=== PATIENT | female | born 1975 | race Caucasian/White ===

== ENCOUNTER 2016-06-19 15:35 | Inpatient (IN) | payer OTHER ==
[~2016-06-19] VITALS: Ht 160 cm; Wt 69.2 kg
[2016-06-19] MEDS ORDERED: MAGNESIUM HYDROXIDE SUSPENSION 30 ML UDCUP PO PRN (16:45)
[2016-06-19] MEDS: TraMADol HCL 50 MG TABLET PO PRN (17:06)
[2016-06-19 17:08] VITALS: BP 120/89
[2016-06-19] MEDS ORDERED: ALBUTEROL SULFATE HFA 90 MCG/PUFF 8 GM INHALER IH PRN (17:30)
[2016-06-19] MEDS: METHOCARBAMOL 500 MG TABLET PO PRN ×2 (18:22→23:58)
[2016-06-19 18:32] LABS: GLUCOSE,POINT OF CARE 102 MG/DL (70-110)
[2016-06-19] MEDS: SENNA 187 MG TABLET PO SCH (20:23)
[2016-06-19] MEDS: DEXAMETHASONE 2 MG TABLET PO SCH (20:23)
[2016-06-19] MEDS: IBUPROFEN 800 MG TABLET PO SCH (20:23)
[2016-06-19] MEDS: DOCUSATE SODIUM 100 MG CAPSULE PO SCH (20:23)
[2016-06-19 21:21] LABS: APPEARANCE,URINE CLOUDY (CLEAR); GLUCOSE, URINE (UA) NEGATIVE (NEGATIVE); KETONES,URINE NEGATIVE (NEGATIVE); LEUKOCYTE ESTERASE ,URINE MODERATE (NEGATIVE); OCCULT BLOOD,URINE NEGATIVE (NEGATIVE); PROTEIN,URINE NEGATIVE (NEGATIVE)
[2016-06-19 21:22] LABS: ADD UA MICROSCOPIC YES
[2016-06-19 21:37] LABS: RBC,URINE 0-2 /HPF (0-2); SQUAMOUS EPITHELIAL CELL,UR Few /LPF (None Seen); TRANSITIONAL EPI CELLS,URINE Few /LPF (None Seen)
[2016-06-19 23:58] VITALS: BP 122/79
[2016-06-20] MEDS: TraMADol HCL 50 MG TABLET PO PRN ×3 (00:38→22:13)
[2016-06-20] MEDS: ACETAMINOPHEN 325 MG TABLET PO PRN ×4 (06:19→19:05)
[2016-06-20 07:12] LABS: BASOPHILS % (AUTO) 0.3 % (0.0-2.0); EOSINOPHILS % (AUTO) 0.7 % (1.0-6.0); HEMATOCRIT 34.6 % (36-46); HEMOGLOBIN 11.2 g/dL (12.0-16.0); LYMPHOCYTES # (AUTO) 3.1 K/uL (1.0-4.8); LYMPHOCYTES % (AUTO) 20.6 % (22.0-44.0); MEAN CORPUSCULAR HEMOGLOBIN 27.5 pg (26.0-34.0); MEAN CORPUSCULAR HGB CONC 32.4 G/dL (31.0-37.0); MEAN CORPUSCULAR VOLUME 85 fL (80-100); MONOCYTES # (AUTO) 0.9 K/uL (0.1-1.0); MONOCYTES % (AUTO) 5.8 % (2.0-9.0); NEUTROPHILS % (AUTO) 72.6 % (40.0-70.0); PLATELET COUNT (AUTO) 358 K/uL (150-450); RED BLOOD CELL COUNT(AUTO) 4.06 MIL/uL (4.00-5.20); RED CELL DISTRIBUTION WIDTH 15.4 % (11.5-14.5); WHITE BLOOD COUNT (AUTO) 15.1 K/uL (4.5-11.0)
[2016-06-20 07:18] VITALS: BP 129/73
[2016-06-20 07:42] LABS: ALANINE AMINOTRANSFERASE 26 U/L (12-78); ANION GAP 9 mmol/L (8-16); ASPARTATE AMINOTRANSFERASE 15 U/L (15-37); BILIRUBIN,TOTAL 0.2 mg/dL (0.1-1.0); CALCIUM, TOTAL 8.5 mg/dL (8.8-10.5); CARBON DIOXIDE 29 mmol/L (22-29); CHLORIDE 103 mmol/L (98-107); CREATININE 0.68 mg/dL (0.60-1.30); GLOMERULAR FILTR. RATE CALC > 60 mL/min (>60); POTASSIUM 4.2 mmol/L (3.5-5.1); SODIUM SERUM 141 mmol/L (136-145); UREA NITROGEN, BLOOD 16 mg/dL (7-18)
[2016-06-20] MEDS: POLYETHYLENE GLYCOL 3350 17 GM PACKET PO SCH (08:06)
[2016-06-20] MEDS: DOCUSATE SODIUM 100 MG CAPSULE PO SCH ×2 (08:07→20:53)
[2016-06-20] MEDS: IBUPROFEN 800 MG TABLET PO SCH ×3 (08:07→20:54)
[2016-06-20] MEDS: DEXAMETHASONE 2 MG TABLET PO SCH ×2 (08:07→20:52)
[2016-06-20 15:10] VITALS: BP 120/76
[2016-06-20] MEDS: SENNA 187 MG TABLET PO SCH (20:52)
[2016-06-20 23:10] VITALS: BP 125/81
[2016-06-21 07:30] VITALS: BP 132/84
[2016-06-21] MEDS: DOCUSATE SODIUM 100 MG CAPSULE PO SCH ×2 (08:13→20:53)
[2016-06-21] MEDS: IBUPROFEN 800 MG TABLET PO SCH ×3 (08:13→20:53)
[2016-06-21] MEDS: DEXAMETHASONE 1 MG TABLET PO SCH ×2 (08:13→20:54)
[2016-06-21] MEDS: TraMADol HCL 50 MG TABLET PO PRN ×2 (08:14→19:41)
[2016-06-21] MEDS: POLYETHYLENE GLYCOL 3350 17 GM PACKET PO SCH (08:19)
[2016-06-21] MEDS: METHOCARBAMOL 500 MG TABLET PO PRN (10:26)
[2016-06-21] MEDS: NITROFURANTOIN/NITROFURAN MAC 100 MG CAPSULE [MACROBID] PO SCH ×2 (12:56→20:53)
[2016-06-21] MEDS: GABAPENTIN 100 MG CAPSULE PO SCH (15:30)
[2016-06-21 16:08] VITALS: BP 116/78
[2016-06-21] MEDS: GABAPENTIN 300 MG CAPSULE PO SCH (20:53)
[2016-06-21] MEDS: SENNA 187 MG TABLET PO SCH (20:53)
[2016-06-21 23:37] VITALS: BP 130/82
[2016-06-22] MEDS: TraMADol HCL 50 MG TABLET PO PRN ×3 (03:11→12:25)
[2016-06-22 06:45] VITALS: BP 124/77
[2016-06-22 06:59] LABS: BASOPHILS % (AUTO) 0.3 % (0.0-2.0); EOSINOPHILS % (AUTO) 1.8 % (1.0-6.0); HEMATOCRIT 34.9 % (36-46); HEMOGLOBIN 11.3 g/dL (12.0-16.0); LYMPHOCYTES # (AUTO) 3.9 K/uL (1.0-4.8); LYMPHOCYTES % (AUTO) 22.3 % (22.0-44.0); MEAN CORPUSCULAR HEMOGLOBIN 27.5 pg (26.0-34.0); MEAN CORPUSCULAR HGB CONC 32.5 G/dL (31.0-37.0); MEAN CORPUSCULAR VOLUME 85 fL (80-100); MONOCYTES # (AUTO) 1.1 K/uL (0.1-1.0); NEUTROPHILS # (AUTO) 12.1 K/uL (1.8-7.7); NEUTROPHILS % (AUTO) 69.6 % (40.0-70.0); PLATELET COUNT (AUTO) 414 K/uL (150-450); RED BLOOD CELL COUNT(AUTO) 4.13 MIL/uL (4.00-5.20); RED CELL DISTRIBUTION WIDTH 15.2 % (11.5-14.5); WHITE BLOOD COUNT (AUTO) 17.5 K/uL (4.5-11.0)
[2016-06-22] MEDS: DEXAMETHASONE 1 MG TABLET PO SCH ×2 (07:52→20:32)
[2016-06-22] MEDS: NITROFURANTOIN/NITROFURAN MAC 100 MG CAPSULE [MACROBID] PO SCH ×2 (07:52→20:33)
[2016-06-22] MEDS: DOCUSATE SODIUM 100 MG CAPSULE PO SCH ×2 (07:52→20:32)
[2016-06-22] MEDS: POLYETHYLENE GLYCOL 3350 17 GM PACKET PO SCH (07:52)
[2016-06-22] MEDS: GABAPENTIN 100 MG CAPSULE PO SCH ×2 (07:52→15:47)
[2016-06-22] MEDS: IBUPROFEN 800 MG TABLET PO SCH ×3 (07:52→20:32)
[2016-06-22 15:47] VITALS: BP 128/86
[2016-06-22] MEDS: SENNA 187 MG TABLET PO SCH (20:32)
[2016-06-22] MEDS: GABAPENTIN 300 MG CAPSULE PO SCH (20:32)
[2016-06-22 23:06] VITALS: BP 108/55
[2016-06-23] MEDS: TraMADol HCL 50 MG TABLET PO PRN ×2 (03:32→13:37)
[2016-06-23 07:28] VITALS: BP 125/87
[2016-06-23] MEDS: POLYETHYLENE GLYCOL 3350 17 GM PACKET PO SCH (09:00)
[2016-06-23] MEDS: NITROFURANTOIN/NITROFURAN MAC 100 MG CAPSULE [MACROBID] PO SCH ×2 (09:05→21:51)
[2016-06-23] MEDS: GABAPENTIN 100 MG CAPSULE PO SCH ×2 (09:05→16:00)
[2016-06-23] MEDS: DOCUSATE SODIUM 100 MG CAPSULE PO SCH ×2 (09:05→21:51)
[2016-06-23] MEDS: IBUPROFEN 800 MG TABLET PO SCH ×3 (09:06→21:51)
[2016-06-23] MEDS: DEXAMETHASONE 1 MG TABLET PO SCH (09:06)
[2016-06-23 16:24] VITALS: BP 128/84
[2016-06-23] MEDS: CALCIUM CARBONATE 500 MG CHEWABLE TABLET CHEW PRN (19:56)
[2016-06-23] MEDS: GABAPENTIN 300 MG CAPSULE PO SCH (21:51)
[2016-06-23] MEDS: SENNA 187 MG TABLET PO SCH (21:51)
[2016-06-23 23:15] VITALS: BP 118/74
[2016-06-24] MEDS: TraMADol HCL 50 MG TABLET PO PRN ×3 (01:55→23:06)
[2016-06-24 07:10] VITALS: BP 123/80
[2016-06-24] MEDS: DOCUSATE SODIUM 100 MG CAPSULE PO SCH ×2 (07:55→21:22)
[2016-06-24] MEDS: GABAPENTIN 100 MG CAPSULE PO SCH ×2 (07:55→17:38)
[2016-06-24] MEDS: NITROFURANTOIN/NITROFURAN MAC 100 MG CAPSULE [MACROBID] PO SCH ×2 (07:55→21:22)
[2016-06-24] MEDS: DEXAMETHASONE 1 MG TABLET PO SCH (07:55)
[2016-06-24] MEDS: IBUPROFEN 800 MG TABLET PO SCH ×3 (07:55→21:22)
[2016-06-24] MEDS: POLYETHYLENE GLYCOL 3350 17 GM PACKET PO SCH (07:56)
[2016-06-24] MEDS: CALCIUM CARBONATE 500 MG CHEWABLE TABLET CHEW PRN ×2 (14:06→21:27)
[2016-06-24 18:30] VITALS: BP 133/78
[2016-06-24] MEDS: SENNA 187 MG TABLET PO SCH (21:22)
[2016-06-24] MEDS: GABAPENTIN 300 MG CAPSULE PO SCH (21:24)
[2016-06-24 23:06] VITALS: BP 119/73
[2016-06-25 00:10] VITALS: BP 119/83
[2016-06-25] MEDS ORDERED: TRAM50TA4 PO (01:04)
[2016-06-25] MEDS ORDERED: MACR100 PO (01:04)
[2016-06-25] MEDS ORDERED: IBUP-1547 PO (01:04)
[2016-06-25] MEDS ORDERED: DSS100 PO (01:04)
[2016-06-25] MEDS ORDERED: MIRALAX PO (01:04)
[2016-06-25] MEDS ORDERED: GABA-529 PO (01:04)
[2016-06-25] MEDS ORDERED: GABA-531 PO (01:04)
[2016-06-25] MEDS: METHOCARBAMOL 500 MG TABLET PO PRN (03:51)
[2016-06-25 07:55] VITALS: BP 123/74
[2016-06-25] MEDS: IBUPROFEN 800 MG TABLET PO SCH (07:59)
[2016-06-25] MEDS: TraMADol HCL 50 MG TABLET PO PRN (07:59)
[2016-06-25] MEDS: POLYETHYLENE GLYCOL 3350 17 GM PACKET PO SCH (08:00)
[2016-06-25] MEDS: GABAPENTIN 100 MG CAPSULE PO SCH (08:00)
[2016-06-25] MEDS: DOCUSATE SODIUM 100 MG CAPSULE PO SCH (08:00)
[2016-06-25] MEDS: NITROFURANTOIN/NITROFURAN MAC 100 MG CAPSULE [MACROBID] PO SCH (08:00)
== END 2016-06-25 13:15 | disposition home or self-care (01) | DRG 91 ==
LOC: 2WR 15:35
PROVIDERS: ADMIT Physical Medicine & Rehabilitation; ATTEND Physical Medicine & Rehabilitation
DX: G95.9 Disease of spinal cord, unspecified (principal); E43 Unspecified severe protein-calorie malnutrition; N39.0 Urinary tract infection, site not specified; F33.2 Major depressive disorder, recurrent severe without psychotic features; R53.1 Weakness; J45.909 Unspecified asthma, uncomplicated; G43.909 Migraine, unspecified, not intractable, without status migrainosus; R29.6 Repeated falls; D50.0 Iron deficiency anemia secondary to blood loss (chronic); G89.29 Other chronic pain; M54.5 Low back pain; R20.0 Anesthesia of skin; Z98.890 Other specified postprocedural states; Z68.27 Body mass index [BMI] 27.0-27.9, adult; Z86.69 Personal history of other diseases of the nervous system and sense organs
CPT/HCPCS: 82962; 87081; 87086; 97110; 97116; 97150; 97162; 97165; 97530; 97535; 99366; J3535; J8540